=== PATIENT | male | born 1985 | race Caucasian/White ===

== ENCOUNTER 2021-10-17 09:27 | Emergency (ER) | payer MEDICARE, MEDICAID ==
[~2021-10-17] VITALS: Ht 177.8 cm; Wt 96.0 kg
[2021-10-17] MEDS ORDERED: SODIUM CHLORIDE 0.9% 1,000 ML IV ONE (09:45)
[2021-10-17 10:02] LABS: BASOPHILS % 0.3 % (0.0-2.0); EOSINOPHILS % 1.6 % (0.0-5.0); HEMATOCRIT. 44.8 % (42.0-52.0); HEMOGLOBIN. 15.3 g/dL (14.0-18.0); LYMPHOCYTES % 30.6 % (20.0-50.0); MEAN CORPUSCULAR HEMOGLOBIN 29.3 pg (28.0-32.0); MEAN CORPUSCULAR VOLUME 86.1 fL (80.0-94.0); MEAN PLATELET VOLUME 9.5 fl (7.4-10.4); MONOCYTES % 8.2 % (2.0-8.0); NEUTROPHILS % 59.3 % (40.0-76.0); PLATELET 175 x1000/uL (130-400); RED BLOOD CELL COUNT 5.21 mill/uL (4.7-6.1); RED CELL DISTRIBUTION WIDTH 12.5 % (11.6-14.6)
[2021-10-17 10:17] LABS: CHLORIDE 109 mEq/L (98-107)
[2021-10-17 13:04] VITALS: BP 118/75
== END 2021-10-17 13:09 | disposition home or self-care (01) ==
LOC: ER 09:44
DX: R55 Syncope and collapse (principal); R42 Dizziness and giddiness; R11.2 Nausea with vomiting, unspecified; F41.9 Anxiety disorder, unspecified; Z88.0 Allergy status to penicillin
CPT/HCPCS: 36415; 80053; 84484; 85025; 99283; J7030